=== PATIENT | male | born 1955 | race Caucasian/White ===

== ENCOUNTER 2018-02-22 08:30 | Day surgery (SDC) | payer BC ==
[~2018-02-22] VITALS: Ht 180.3 cm; Wt 111.4 kg
[~2018-02-22 08:30] MED LIST: CRESTOR10 MG PO; DITROPAN XL10 MG PO; FLOMAX0.4 MG PO
--- NOTE | 2018-02-22 10:44 | NUR ---
02/22/18 1044 Dorothy Mann 1035 PT ARRIVED TO PACU DROWSY AND TALKING. RESP EVEN AND UNLABORED. 1042 PT AWAKE AND SIPPING WATER, PT TAKNG OWN SUCK-ON CANDY. O2 REMOVED. O2 SAT 98%.
--- NOTE | 2018-02-23 11:04 | OR ---
[facility] [address] [place], [place] [address] Signed DATE OF OPERATION: 02/22/2018 SURGEON: Gabe Katz MD PREOPERATIVE DIAGNOSES: 1. Distal esophageal dysphagia. 2. Gastroesophageal reflux disease. 3. Hiatal hernia. 4. Thickened rectosigmoid junction on recent CT scan. 5. Diverticulosis. 6. Hyperplastic rectal polyps in 2009. 7. Mother and father with a personal history of colonic polyps. POSTOPERATIVE DIAGNOSES: 1. Small to moderate sized hiatal hernia. 2. Moderate punctate hemorrhagic gastroduodenitis. 3. Minimal sigmoid diverticulosis. 4. 4 mm rectal polyps x2. PROCEDURES: 1. EGD with CLOtest and biopsies of the duodenum, pyloric bulb, and antrum. 2. Colonoscopy with hot biopsy. ESTIMATED BLOOD LOSS: None. INDICATIONS: Coy is a 62-year-old gentleman, asked to see me for upper and lower endoscopy. He said he has had acid reflux and hiatal hernia for years. Although, he has never had a check. He said he is now having trouble with distal esophageal dysphagia. He said solid foods often gets stuck in his distal esophagus. He takes no medication for his acid reflux. 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 In addition, he had a CT scan recently for his kidney stones and there was concern about a thickened rectosigmoid junction. He also had a colonoscopy back in 2009 and he had hyperplastic rectal polyps along with some minimal diverticulosis. In addition, his mom and dad both had colon polyps in the past. I met with Coy in the office and I gave him pamphlets on both upper and lower endoscopy. We looked at the nature of the 2 tests along with the risks including, but not limited to gas bloating, crampy abdominal pain, bleeding, perforation, requiring surgery, and missed diagnosis. We also discussed the need for IV conscious sedation. He had Electronically Signed By: GABE KATZ MD 02/23/18 1104 PATIENT NAME: COY DIMAS OPERATIVE REPORT DATE OF : 59 REPORT #: [id number] PHYSICIAN: GABE KATZ MD PCP: JC DESAI DO REPORT IS CONFIDENTIAL AND NOT TO BE RELEASED WITHOUT AUTHORIZATION [facility] [address] [place], [place] [address] Signed expressed understanding and wish to proceed. PROCEDURE NOTE: Coy was taken into our endoscopy suite and placed in the supine semi-recumbent position. He was given divided doses of 10 mg of Versed and 200 mcg of fentanyl to cover both cases. The posterior oropharynx was anesthetized with Hurricaine spray. Bite block was utilized for the case. The adult gastroscope was introduced and advanced under direct visualization into the second portion of the duodenum. He did have some erythematous changes in the duodenal and pyloric channel. Consequently, we took biopsies in both areas. The stomach showed some small punctate hemorrhagic gastritis as well. We went ahead and took biopsies of the antrum for CLOtest as well as pathologic review. We saw no ulcerations. No gastric or esophageal varices. The scope had been retroflexed. He does have a small to moderate sized type 1 hiatal hernia. I do see some irritation around the folds going up into the hiatal hernia. The scope was withdrawn up through the area of GE junction, which was generally compliant. Although we could see some irritation in that area. We did see a definite Z-line. We did see obvious Lovell's mucosa extending up into the distal esophagus. It may or may not be a little narrowed. It is hard to know with the gastroscope. No ulcerations in that area that we could see. The middle and upper esophagus were unremarkable. After this, the gas was suctioned out and the gastroscope removed. Coy tolerated the procedure quite well. The area was rotated into the left lateral decubitus position. He was maintained on IV sedation with the versed and fentanyl. A digital rectal exam was performed and this was unremarkable. The adult colonoscope was introduced and advanced all around into the cecum under direct visualization of camera without difficulty. He did have some liquid particulate stool matter in the cecum, which we irrigated and suctioned out mostly. The scope was then slowly withdrawn. We could see that he has some diverticula in the sigmoid colon. They were minimal in number and minimal in size, minimal to moderate in number, minimal in size and scattered about. The rectum itself showed two tiny polyps, one just above the anal canal, one at about 80 cm, both were easily removed with a hot biopsy forceps. The scope was then retroflexed and he has very little if any internal hemorrhoid tissue. After this, the gas was suctioned out and the colonoscope removed. Coy tolerated the lower endoscopy quite well. RECOMMENDATIONS: I will see Coy back in my office in 7 to 14 days to review his results. He could consider taking medication for his stomach. He might consider a barium swallow to evaluate the GE junction to see if it is narrowed. Electronically Signed By: GABE KATZ MD 02/23/18 1104 PATIENT NAME: COY DIMAS OPERATIVE REPORT DATE OF : 59 REPORT #: [id number] PHYSICIAN: GABE AKTZ MD PCP: JC DESAI DO REPORT IS CONFIDENTIAL AND NOT TO BE RELEASED WITHOUT AUTHORIZATION [address] [place] [address] Signed Gabe Katz MD ALB/MODL /[id number] cc: MD Jc Callahan DO Copies: GABE KATZ MD, ARIAN DO ~ Electronically Signed By: GABE KATZ MD 02/23/18 1104 PATIENT NAME: COY DIMAS OPERATIVE REPORT DATE OF : 59 REPORT #: [id number] PHYSICIAN: GABE KATZ MD PCP: JC DESAI DO REPORT IS CONFIDENTIAL AND NOT TO BE RELEASED WITHOUT AUTHORIZATION
== END 2018-02-22 11:12 | disposition home or self-care (01) ==
LOC: DS 08:30 → OPS 08:30 → DS 09:45 → OPS 11:12
PROVIDERS: Colon & Rectal Surgery
PROC: 0DB78ZX Excision of Stomach, Pylorus, Via Natural or Artificial Opening Endoscopic, Diagnostic (ICD-10-PCS; 2018-02-22)
PROC: 0DBP8ZX Excision of Rectum, Via Natural or Artificial Opening Endoscopic, Diagnostic (ICD-10-PCS; principal; 2018-02-22 09:45)
PROC: 0DB98ZX Excision of Duodenum, Via Natural or Artificial Opening Endoscopic, Diagnostic (ICD-10-PCS; 2018-02-22 09:45)
DX: K62.1 Rectal polyp (principal); K57.30 Diverticulosis of large intestine without perforation or abscess without bleeding; K29.80 Duodenitis without bleeding; K44.9 Diaphragmatic hernia without obstruction or gangrene; K21.9 Gastro-esophageal reflux disease without esophagitis; G47.33 Obstructive sleep apnea (adult) (pediatric); E78.5 Hyperlipidemia, unspecified; N40.1 Benign prostatic hyperplasia with lower urinary tract symptoms; Z98.890 Other specified postprocedural states; Z79.899 Other long term (current) drug therapy
CPT/HCPCS: 86677; 99153; G0500; J2250; J3010; J7120

== ENCOUNTER 2021-11-07 10:30 | Emergency (ER) | payer BC ==
[~2021-11-07] VITALS: Ht 180.3 cm; Wt 120.5 kg
[~2021-11-07 10:30] MED LIST changes: +ADULT ASPIRIN R81 MG PO; +ALLOPURINOL100 MG PO; +ASPIRIN EC325 MG PO; +DILTIAZEM 24HR120 MG PO; +EZETIMIBE10 MG PO; +POTASSIUM CITR10 MEQ PO; +PROBICHEW 21 B1 EACH PO; +VASCEPA1 GM PO
[2021-11-07] MEDS ORDERED: ONDANSETRON ODT8 MG PO (14:08)
[2021-11-07] MEDS ORDERED: ATIVAN1 MG PO (14:08)
== END 2021-11-07 14:30 | disposition home or self-care (01) ==
LOC: ED 10:30
DX: H83.09 Labyrinthitis, unspecified ear (principal); E78.00 Pure hypercholesterolemia, unspecified; Z87.891 Personal history of nicotine dependence; Z79.899 Other long term (current) drug therapy; Z79.82 Long term (current) use of aspirin
CPT/HCPCS: 36415; 70450; 70496; 70498; 80053; 84484; 85025; 99284-25; A9270; Q9967

== ENCOUNTER 2023-07-25 08:31 | Day surgery (SDC) | payer MEDICARE ==
[~2023-07-25] VITALS: Ht 180.3 cm; Wt 125.0 kg
[~2023-07-25 08:31] MED LIST changes: +ATIVAN1 MG PO; +ONDANSETRON ODT8 MG PO
[2023-07-25 08:48] VITALS: BP 133/82
[2023-07-25] MEDS ORDERED: REPATHA SY140 MG/1 M SUB-Q (08:55)
[2023-07-25] MEDS ORDERED: ELIQUIS5 MG PO (08:56)
[2023-07-25] MEDS ORDERED: SENNA8.6 MG PO (08:57)
[2023-07-25] MEDS ORDERED: MULTI VITAMIN1 EACH PO (08:57)
[2023-07-25] MEDS ORDERED: TROSPIUM CHLORI20 MG PO (08:58)
--- NOTE | 2023-07-25 10:31 | NUR ---
07/25/23 1031 Judy Ibrahim PT TO PACU AWAKE DENIES PAIN AND NAUSE.
[2023-07-25 10:47] VITALS: BP 113/70
--- NOTE | 2023-07-26 07:29 | OR ---
[facility] [address] [place], [place] [address] Signed DATE OF OPERATION: 07/25/2023 SURGEON: Gabe Katz MD PREOPERATIVE DIAGNOSES: 1. Father with colonic polyps. 2. Mother with colonic polyps. 3. Personal history of hyperplastic colonic polyps. 4. Diverticulosis. POSTOPERATIVE DIAGNOSES: 1. Minimal to moderate sigmoid diverticulosis. 2. 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 PROCEDURE: Colonoscopy without biopsy. ESTIMATED BLOOD LOSS: None. INDICATIONS: Coy is a 67-year-old gentleman, asked to see me for a followup colonoscopy. His mom and dad both had colonic polyps removed. Coy came in 2009 at the age of 53. He had hyperplastic polyps and diverticulosis. He always does well with Versed and fentanyl. He had come back in 2018 at the age of 62. Again, he had a few hyperplastic polyps and the diverticulosis. He always does well with the Versed and fentanyl. He has been on the five year plan. He currently has no lower GI complaints. However, I see that he is on senna twice a day. That would explain his melanosis coli today. In the office, I had given him a pamphlet on colonoscopy. He recalls the test well. There is risk including, but not limited to gas bloating, crampy abdominal pain, bleeding, perforation requiring surgery, and missed diagnosis. We also reviewed the written instructions for the bowel prep line by line. He has been put on Eliquis by his registry nurse because of his rather significant hyperlipidemia that runs in his family. It is being used prophylactically. We had him hold the Eliquis five days prior to the procedure. He also understands that an adult person has to take him home afterwards. He had expressed understanding and wished to proceed. DESCRIPTION OF PROCEDURE: Coy was taken into our endoscopy suite and placed in the left lateral decubitus position. He was given 6 mg of Versed and 150 mcg of fentanyl. A digital rectal exam Electronically Signed By: GABE KATZ MD 07/26/23 0729 PATIENT NAME: COY DIMAS OPERATIVE REPORT DATE OF : 59 REPORT #: [id number] PHYSICIAN: GABE KATZ MD PCP: ALEXANDRA PARSON MD REPORT IS CONFIDENTIAL AND NOT TO BE RELEASED WITHOUT AUTHORIZATION [facility] [address] [place], [place] [address] Signed was performed. This was unremarkable. He had good sphincter tone. There were no external hemorrhoids. There were no masses. He has a little induration to the bottom of the prostate. The adult colonoscope was introduced and advanced all around into the cecum under direct visualization of the camera. As always, his prep was quite good. We could easily see the appendiceal orifice and the ileocecal valve. The scope was then slowly withdrawn. Pictures were taken throughout for photodocumentation. 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 Again, he has some diverticula in the left and sigmoid colon. They are small to moderate in size, few in number and scattered about. Once in the rectum, the scope was then retroflexed and he has very minimal internal hemorrhoid tissue. After this, the gas was suctioned out and the colonoscope removed. Coy tolerated the procedure quite well. RECOMMENDATIONS: Coy can follow up in 5 years for repeat colonoscopy due to his family history. He should switch the senna over to MiraLAX due to his melanosis coli. In due time, the senna will be quite detrimental to his colon. Gabe Katz MD ALB/MODL /[id number] cc: MD Alexandra Callahan MD Copies: GABE KATZ MD ~ Electronically Signed By: GABE KATZ MD 07/26/23 0729 PATIENT NAME: COY DIMAS OPERATIVE REPORT DATE OF : 59 REPORT #: [id number] PHYSICIAN: GABE KATZ MD PCP: ALEXANDRA PARSON MD REPORT IS CONFIDENTIAL AND NOT TO BE RELEASED WITHOUT AUTHORIZATION
== END 2023-07-25 11:00 | disposition home or self-care (01) ==
LOC: OPS 08:31 → DS 08:31 → OPS 10:15 → DS 10:15 → OPS 11:00
PROVIDERS: ATTEND Colon & Rectal Surgery
PROC: 0DJD8ZZ Inspection of Lower Intestinal Tract, Via Natural or Artificial Opening Endoscopic (ICD-10-PCS; principal; 2023-07-25 10:15)
DX: Z12.11 Encounter for screening for malignant neoplasm of colon (principal); K57.30 Diverticulosis of large intestine without perforation or abscess without bleeding; K63.89 Other specified diseases of intestine; K64.8 Other hemorrhoids; Z86.010 Personal history of colon polyps; Z83.719 Family history of colon polyps, unspecified; G47.33 Obstructive sleep apnea (adult) (pediatric); I10 Essential (primary) hypertension; E78.2 Mixed hyperlipidemia; I48.91 Unspecified atrial fibrillation; K44.9 Diaphragmatic hernia without obstruction or gangrene; E66.9 Obesity, unspecified; Z68.38 Body mass index [BMI] 38.0-38.9, adult; Z87.442 Personal history of urinary calculi; Z88.8 Allergy status to other drugs, medicaments and biological substances; Z79.01 Long term (current) use of anticoagulants; Z79.899 Other long term (current) drug therapy
CPT/HCPCS: 99153; G0500; J2250; J3010; J7121